=== PATIENT | male | born 1935 | race Caucasian/White ===

== ENCOUNTER 2017-03-03 07:13 | Day surgery (SDC) | payer MEDICARE, OTHER ==
[~2017-03-03] VITALS: Ht 170.2 cm; Wt 66.0 kg
[~2017-03-03 07:13] MED LIST: AMLO5TAB4 PO; ASPI-535 PO; CARV3.1260 PO; CHOL20002 PO; DONE10TA7 PO; ENOX30DI2 SC; INSU100C3 SC; LEVEM SC; LISI-325 PO; LISI-523 PO; METF1000 PO; OMEP40CA6 PO; ONDA4TAB35 PO; ROSU20TA PO; TAMS-14 PO
[2017-03-03] MEDS ORDERED: MIDAZOLAM 1 MG/ML 2 ML INJ ONE (07:40)
[2017-03-03] MEDS ORDERED: NITROGLYCERIN (IC) 100 MCG/ML INJ ONE (07:40)
[2017-03-03] MEDS ORDERED: LIDOCAINE 1% (MDV) 20 ML INJ ONE (07:40)
[2017-03-03] MEDS ORDERED: IODIXANOL LOCM 100 ML BTL ONE (07:40)
[2017-03-03] MEDS ORDERED: SOD CHLORIDE 0.9% 500 ML ONE (07:41)
[2017-03-03 07:53] VITALS: Ht 170.2 cm; Wt 66.0 kg
[2017-03-03] MEDS ORDERED: VERAPAMIL 5 MG INJ ONE (07:55)
[2017-03-03 07:58] LABS: ADD SCAN DIFF NO
[2017-03-03 08:25] LABS: BASOPHILS % 0.3 % (0.0-2.0); EOSINOPHILS # 0.2 10^3/ul (0.0-0.5); EOSINOPHILS % 2.6 % (0.0-7.0); HEMATOCRIT 39.3 % (42.0-52.0); HEMOGLOBIN 13.4 g/dl (14.0-18.0); LYMPHOCYTES % 34.1 % (15.0-51.0); MEAN CORPUSCULAR HGB CONC 34.1 g/dl (32.0-37.0); MEAN CORPUSCULAR VOLUME 87.9 fl (82.0-101.0); MEAN PLATELET VOLUME 10.7 fl (7.4-10.4); MONOCYTE # 0.6 10^3/ul (0.3-0.9); MONOCYTES % 10.1 % (0.0-11.0); NEUTROPHILS % 52.4 % (39.0-77.0); PLATELET COUNT 200 10^3/UL (140-415); RED BLOOD COUNT 4.47 10^6/ul (4.70-6.10); RED CELL DISTRIBUTION WIDTH 14.2 % (11.5-14.5); WHITE BLOOD COUNT 5.7 10^3/ul (4.8-10.8)
[2017-03-03 08:26] LABS: ALBUMIN 3.7 g/dl (3.3-4.9); ALBUMIN/GLOBULIN RATIO 0.94; BILIRUBIN,INDIRECT 0.2 mg/dl (0-1.1); BILIRUBIN,TOTAL 0.2 mg/dl (0.2-1.3); CALCIUM 9.2 mg/dl (8.4-10.2); CREATININE 0.85 mg/dl (0.61-1.24); POTASSIUM 4.3 mmol/L (3.5-5.1); TOTAL PROTEIN 7.6 g/dl (6.1-8.1)
[2017-03-03 08:29] LABS: INR 0.97; PARTIAL THROMBOPLASTIN TIME 26.8 Sec (25.0-35.0); PROTIME 12.9 Sec (12.2-14.2)
== END 2017-03-03 08:49 | disposition home or self-care (01) ==
LOC: SDS 07:13 → CCL 07:21 → SDS 08:49
PROVIDERS: ATTEND Internal Medicine Interventional Cardiology
DX: R07.9 Chest pain, unspecified (principal); Z53.9 Procedure and treatment not carried out, unspecified reason
CPT/HCPCS: 80053; 85025; 85610; 85730; J7040; Q9967; J2250

== ENCOUNTER 2017-03-07 11:17 | Day surgery (SDC) | payer MEDICARE, OTHER ==
[2017-03-07] VITALS (13 sets, daily range): BP systolic 157–179; BP diastolic 68–102; PULSE 54–74; RESP 10–18; Ht 165.1 cm; Wt 68.0 kg
[~2017-03-07] VITALS: Ht 165.1 cm; Wt 68.0 kg
[~2017-03-07 11:17] MED LIST changes: +SOD CHLORIDE 0.9% 1,000 ML IV SCH
[2017-03-07] MEDS ORDERED: AMLO-147 PO (12:13)
[2017-03-07] MEDS ORDERED: DOCU100T PO (12:17)
[2017-03-07] MEDS ORDERED: SPIR25TA PO (12:18)
[2017-03-07] MEDS ORDERED: APIX2.5T PO (12:18)
[2017-03-07] MEDS ORDERED: MONT10TA24 PO (12:20)
[2017-03-07] MEDS ORDERED: SOTA80TA PO (12:20)
[2017-03-07] MEDS ORDERED: NAPR-260 PO (12:22)
[2017-03-07] MEDS ORDERED: LANT3I SC (12:25)
[2017-03-07] MEDS ORDERED: NOVMIX SC (12:27)
[2017-03-07 13:10] LABS: ADD SCAN DIFF NO
[2017-03-07 13:11] LABS: BASOPHILS % 0.5 % (0.0-2.0); EOSINOPHILS # 0.1 10^3/ul (0.0-0.5); EOSINOPHILS % 2.2 % (0.0-7.0); HEMATOCRIT 36.3 % (42.0-52.0); HEMOGLOBIN 12.9 g/dl (14.0-18.0); LYMPHOCYTES # 1.7 10^3/ul (0.8-2.9); LYMPHOCYTES % 30.8 % (15.0-51.0); MEAN CORPUSCULAR HGB CONC 35.5 g/dl (32.0-37.0); MEAN CORPUSCULAR VOLUME 87.3 fl (82.0-101.0); MEAN PLATELET VOLUME 10.4 fl (7.4-10.4); MONOCYTE # 0.5 10^3/ul (0.3-0.9); MONOCYTES % 9.3 % (0.0-11.0); NEUTROPHIL # 3.1 10^3/ul (1.6-7.5); NEUTROPHILS % 56.7 % (39.0-77.0); PLATELET COUNT 184 10^3/UL (140-415); RED BLOOD COUNT 4.16 10^6/ul (4.70-6.10); RED CELL DISTRIBUTION WIDTH 13.9 % (11.5-14.5); WHITE BLOOD COUNT 5.5 10^3/ul (4.8-10.8)
[2017-03-07 13:27] LABS: INR 1.1; PROTIME 14.2 Sec (12.2-14.2); PT RATIO 1.1
[2017-03-07 13:28] LABS: PARTIAL THROMBOPLASTIN TIME 27.2 Sec (25.0-35.0)
[2017-03-07 13:31] LABS: ALANINE AMINOTRANSFERASE 30 IU/L (13-69); ALBUMIN 3.5 g/dl (3.3-4.9); ALBUMIN/GLOBULIN RATIO 0.94; ALKALINE PHOSPHATASE 58 IU/L (42-121); ANION GAP 8 (8-16); ASPARTATE AMINO TRANSFERASE 21 IU/L (15-46); BILIRUBIN,INDIRECT 0.4 mg/dl (0-1.1); BILIRUBIN,TOTAL 0.4 mg/dl (0.2-1.3); CARBON DIOXIDE 25 mmol/L (21-31); CHLORIDE 107 mmol/L (97-110); CHOL/HDL RATIO 7.4 RATIO; CHOLESTEROL 224 mg/dl (100-200); CREATINE KINASE 73 IU/L (23-200); GLUCOSE 193 mg/dl (70-220); HDL CHOLESTEROL 30 mg/dl (31-75); TOTAL PROTEIN 7.2 g/dl (6.1-8.1); TRIGLYCERIDES 235 mg/dl (0-149)
[2017-03-07] MEDS ORDERED: CLOPIDOGREL 75 MG TAB ONE (13:40)
[2017-03-07 13:41] LABS: BLOOD UREA NITROGEN 16 mg/dl (7-20); CALCIUM 8.9 mg/dl (8.4-10.2); CREATININE 0.84 mg/dl (0.61-1.24); POTASSIUM 3.9 mmol/L (3.5-5.1); SODIUM 136 mmol/L (135-144)
[2017-03-07] MEDS ORDERED: ASPIRIN 81 MG TAB ONE (13:41)
[2017-03-07 13:43] LABS: TROPONIN-I < 0.012 ng/ml (0.00-0.12)
[2017-03-07] MEDS ORDERED: MIDAZOLAM 1 MG/ML 2 ML INJ ONE (13:48)
[2017-03-07] MEDS ORDERED: IODIXANOL LOCM 100 ML BTL ONE (13:48)
[2017-03-07] MEDS ORDERED: FENTAnyl 50 MCG/ML VIAL ONE (13:48)
[2017-03-07] MEDS ORDERED: LIDOCAINE 1% (MDV) 20 ML INJ ONE (13:49)
[2017-03-07] MEDS ORDERED: SOD CHLORIDE 0.9% 1,000 ML IV SCH (14:24)
--- NOTE | 2017-03-07 18:59 | SP ---
DATE OF PROCEDURE: 03/07/2017 NAME OF PROCEDURE: 1. Left heart catheterization, selective left coronary angiograms ____ left femoral angiogram. 2. ____left femoral artery using a Perclose device. 3. Conscious sedation of more than 45 minutes. SURGEON: Dominick Moeller MD INDICATIONS: This 81-year-old gentleman was recommended to undergo diagnostic angiography because o f chest pain and markedly abnormal stress test showing a large amount of reversible ischemia in the LAD area. FINDINGS: 1. Left main coronary is a large vessel. It is normal. Left anterior descending artery proximally is large with about 60% to 70% proximal stenosis. After that, it appeared to be probably 100% occl uded and appears to be getting a very large diagonal. Diagonal itself is large and also 100% occlud ed. There is left to left collaterals with small right to left collaterals noted. 2. Ramus ____is a small to moderate sized vessel with about 50% stenosis. 3. Left circumflex artery is a small vessel with 20% mid stenosis. The right coronary is a large, dominant vessel. It has about 40% proximal ____stenosis, with another 40% stenosis at the posterola teral artery. 4. LVEDP is 23, aortic pressure with pullback is 182/68. DESCRIPTION OF PROCEDURE: A detailed informed consent was obtained. The risks and benefits were di scussed with the patient and family members in detail. ____ in supine position. In the right groin ____. Right groin area was anesthetized with 1% lidocaine, mobilizing a 6-Filipino right femoral art constance. Right femoral angiogram was performed. JL4 catheter was advanced and engaged the left main co ronary artery. Angiogram was obtained. JR4 catheter was advanced and engaged in the left main, hem odynamics recorded while pullback aortic pressure was measured. It was ____ in the right coronary a rtery and angiogram was obtained. Guidewire were removed. Perclose was successfully deployed. Pat ient tolerated the procedure without complication. Patient is transferred ____stable condition. IMMEDIATE COMPLICATIONS: None. 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 The patient's medications will be optimized. Discussed with the patient undergoing di fferent options including medical therapy, high risk ____ intervention versus bypass surgery as an o utpatient. Dictated By: DOMINICK TINSLEY/VALERIE Conf#: [id number] DID#: [id number]
== END 2017-03-07 19:00 | disposition home or self-care (01) ==
LOC: SDS 11:17
PROVIDERS: ATTEND Internal Medicine Interventional Cardiology
DX: I25.82 Chronic total occlusion of coronary artery (principal); E78.2 Mixed hyperlipidemia; I48.92 Unspecified atrial flutter; I48.0 Paroxysmal atrial fibrillation; I10 Essential (primary) hypertension; E11.9 Type 2 diabetes mellitus without complications
CPT/HCPCS: 80053; 80061; 82550; 82553; 82962; 84484; 85025; 85610; 85730; 93458; C1760; C1769; C1887; C1894; J1644; J2250; J3010; Q9967

== ENCOUNTER 2017-03-24 07:37 | Observation (INO) | payer MEDICARE, OTHER ==
[2017-03-24] VITALS (22 sets, daily range): BP systolic 135–164; BP diastolic 67–80; PULSE 65–83; RESP 16–22; Ht 157.5 cm; Wt 68.6 kg
[~2017-03-24] VITALS: Ht 157.5 cm; Wt 68.6 kg
[~2017-03-24 07:37] MED LIST changes: +AMLO-147 PO; -AMLO5TAB4 PO; +APIX2.5T PO; -CARV3.1260 PO; -CHOL20002 PO; +DOCU100T PO; -DONE10TA7 PO; -ENOX30DI2 SC; -INSU100C3 SC; +LANT3I SC; -LEVEM SC; -LISI-325 PO; -LISI-523 PO; -METF1000 PO; +MONT10TA24 PO; +NAPR-260 PO; +NOVMIX SC; -ONDA4TAB35 PO; -SOD CHLORIDE 0.9% 1,000 ML IV SCH; +SOTA80TA PO; +SPIR25TA PO
[2017-03-24] MEDS: SOD CHLORIDE 0.9% 1,000 ML IV SCH ×2 (09:00→23:30)
[2017-03-24 09:22] LABS: ADD SCAN DIFF NO
[2017-03-24 09:24] LABS: BASOPHILS % 0.4 % (0.0-2.0); EOSINOPHILS # 0.1 10^3/ul (0.0-0.5); EOSINOPHILS % 2.5 % (0.0-7.0); HEMATOCRIT 37.8 % (42.0-52.0); HEMOGLOBIN 13.3 g/dl (14.0-18.0); LYMPHOCYTES # 1.8 10^3/ul (0.8-2.9); LYMPHOCYTES % 32.1 % (15.0-51.0); MEAN CORPUSCULAR HEMOGLOBIN 30.9 pg (29.0-33.0); MEAN CORPUSCULAR HGB CONC 35.2 g/dl (32.0-37.0); MEAN CORPUSCULAR VOLUME 87.9 fl (82.0-101.0); MEAN PLATELET VOLUME 10.3 fl (7.4-10.4); MONOCYTE # 0.6 10^3/ul (0.3-0.9); MONOCYTES % 11.1 % (0.0-11.0); NEUTROPHILS % 53.7 % (39.0-77.0); PLATELET COUNT 213 10^3/UL (140-415); RED CELL DISTRIBUTION WIDTH 13.1 % (11.5-14.5); WHITE BLOOD COUNT 5.6 10^3/ul (4.8-10.8)
[2017-03-24 09:48] LABS: INR 1.07; PROTIME 13.9 Sec (12.2-14.2); PT RATIO 1.1
[2017-03-24 09:49] LABS: PARTIAL THROMBOPLASTIN TIME 27.5 Sec (25.0-35.0)
[2017-03-24 11:05] LABS: ALBUMIN 4.3 g/dl (3.3-4.9); ALBUMIN/GLOBULIN RATIO 1.38; BILIRUBIN,INDIRECT 0.4 mg/dl (0-1.1); BILIRUBIN,TOTAL 0.4 mg/dl (0.2-1.3); CALCIUM 9.5 mg/dl (8.4-10.2); CHOLESTEROL 204 mg/dl (100-200); CREATINE KINASE 101 IU/L (23-200); CREATININE 1.21 mg/dl (0.61-1.24); HDL CHOLESTEROL 29 mg/dl (31-75); POTASSIUM 4.5 mmol/L (3.5-5.1); TOTAL PROTEIN 7.4 g/dl (6.1-8.1); TRIGLYCERIDES 277 mg/dl (0-149)
[2017-03-24 11:17] LABS: CK-MB 2.17 ng/ml (0.0-2.4); TROPONIN-I < 0.012 ng/ml (0.00-0.12)
[2017-03-24] MEDS ORDERED: SOD CHLORIDE 0.9% 1,000 ML IV SCH (13:26)
[2017-03-24] MEDS ORDERED: OXYCODONE/ACETAMINOPHEN (5/325) TAB PO PRN (13:30)
[2017-03-24] MEDS ORDERED: ACETAMINOPHEN 325 MG TAB PO PRN (13:30)
[2017-03-24] MEDS ORDERED: GLUCAGON 1 MG INJ IM PRN (14:00)
[2017-03-24] MEDS ORDERED: DEXTROSE 50% 50 ML SYRINGE IV PRN ×2 (14:00)
[2017-03-24] MEDS ORDERED: GLUCOSE GEL 15 GRAM TUBE PO PRN ×2 (14:00)
[2017-03-24] MEDS ORDERED: GLUCOSE GEL 15 GRAM TUBE BUCCAL PRN (14:00)
[2017-03-24] MEDS: ACETYLCYSTEINE 600 MG CAP PO SCH ×2 (14:57→21:13)
--- NOTE | 2017-03-24 15:00 | SP ---
DATE OF PROCEDURE: 03/24/2017 NAME OF PROCEDURE: 1. Left heart catheterization, selective left coronary angiography. 2. Complicated but successful percutaneous transluminal coronary angioplasty stenting of the proximal, mid, and distal left anterior and descending artery from a chronic total occlusion mid left anterior descending to no significant residual stenosis, angioplasty of the diagonal branches. 3. moderate sedation for more than 150 minutes. SURGEON: Dominick Moeller MD CLINICAL INDICATIONS: The patient is a 81-year-old gentleman who was recommended to undergo diagnostic angiography for anginal chest pain and markedly abnormal stress test showing a large amount of reversible ischemia in the LAD area. The patient had angiography done and ____ medical therapy, he still continued to have anginal chest pain. Because of the large amount of ischemia in the LAD area ____ was recommended to undergo PCI of the SCD as well as LAD. FINDINGS: 1. Left main coronary artery is small, but appeared to be normal. 2. Left anterior descending artery proximally has about 70% stenosis. Mid level is 100% occlusion. After successful PTCA there was no significant stenosis left. Has multiple small diagonal branches. Angioplasty of diagonal was done. The first diagonal appeared to be jailed, the second and the third diagonal remained patent after angioplasty of the second diagonal. 3. Left circumflex artery with 50% stenosis. ____ has about 50% stenosis. 4. Right coronary angiography was not done. 4. Systolic pressure is 161, LVEDP of 11. DESCRIPTION OF PROCEDURE: Written informed consent was discussed with the patient and multiple family members in detail. The patient brought to the laboratory tech ____. Right groin was anesthetized with 1% lidocaine, modified Seldinger technique, a 5-Paraguayan sheath in the right femoral artery. Right femoral angiogram was performed. Preclose was done. A long 8-Paraguayan sheath was placed in the right femoral artery. A pigtail was advanced and engaged in the left main, hemodynamics recorded. Pullback aortic pressure was measured. Then XBLAD 3 guiding catheter was advanced and engaged in the left main coronary artery. Angiogram was obtained. Then, I used ____ including a PT200 and a Corsair catheter to try to advance across into the mid LAD, but even to the diagonal. I changed that wire over the Corsair to a BMW which was left in the diagonal. ____ finally a [employer] 50 wire was advanced and crossed into the distal LAD. A 2-0 balloon followed by 2.5 balloon was used and inflated in the area. Angiogram was obtained. Then, I used a 2.25 x 16 with a [place] [employer] Synergy drug-eluting stent was placed across the mid LAD and deployed it at 11 atmospheres. Angiogram was obtained. Then, I used another 2.5 x 32 mm Synergy drug-eluting stent ____ and more proximal to it, placed in the mid LAD again. Angiogram was obtained. It appeared that with the diagonal branch ____ jailed and completely occluded. I advanced the wire and was able to rewire this branch through with another BMW wire. J-wire was removed. At this point, it appeared the distal LAD ____ dissection was noted. A 2.0 balloon was used in this area which had a prolonged inflation. Angiogram was obtained. A 2.0 balloon was placed across the diagonal branch and inflated the area. Angiogram was obtained. Flow was restored again in this area. Angiogram was obtained. It appeared that the distal LAD was completely occluded , so I decided to convert the stent with another stent. Then, I used a 2.0 x 28 mm ____ stent in the distal LAD, covered it overlapping with a previous stent , covered the dissection area, and inflated it at 12 atmospheres. Then the balloon was withdrawn, and the overlapping area was postdilated again at 12 atmospheres. Angiogram was obtained. Then, I ballooned the diagonal branch with the same 2-0 and finally the LAD with a same stent balloon. Angiogram was obtained. Then, I used another wire, was able to advanced and able to cross into the first diagonal. This area appeared to have a 95% stenosis, was angioplastied no significant residual stenosis using a 2.0 balloon. Then, I used a 3.0 x 24 mm stent ____ across the proximal LAD into the mid overlapping distally with the previous stent. Deployed it at 14 and 16 atmospheres. Finally, a ____ noncompliant balloon was placed across ____ stent and postdilated the stent. Multiple angiograms were obtained which showed SHEILA 3 flow, no evidence of dissection, no significant residual stenosis at the site of stent. One of the diagonals was jailed but the rest were fine. The septal branches were also patent as well. Catheter and Glidewire were removed. Perclose was successfully deployed. The patient tolerated the procedure without complication. The patient was transferred to recovery in stable condition. TOTAL CONTRAST USED: 300 mL. TOTAL CONSCIOUS SEDATION TIME: More than 150 minutes. CONCLUSION: Successful PTCA stenting of the chronic total occlusion of the LAD. RECOMMENDATIONS: Aggressive medical therapy. Dictated By: DOMINICK TINSLEY/VALERIE Conf#: [id number] DID#: [id number] CC: JEAN-PAUL FERNANDEZ DO;*EndCC* MTDD
--- NOTE | 2017-03-24 15:29 | HP ---
DATE OF ADMISSION: 03/24/2017 CHIEF COMPLAINT: Coronary artery disease, status post PCI. HISTORY OF PRESENT ILLNESS: This is a 81-year-old male with a past medical history of hypertension, diabetes and dyslipidemia who presents to [facility] to undergo elective cardiac catheterization. The patient has a known history of coronary artery disease, had a positive stress test, and experiencing shortness of breath in the outpatient setting. As a result he came in to see Dr. Moeller, his doctor chiropractic, and is scheduled for outpatient cardiac catheterization with Dr. Coto at. Currently the patient is stable. Denies any active chest pain, fevers, chills, nausea, vomitin g or shortness of breath. PAST MEDICAL HISTORY: As stated above, a history of coronary artery disease, a history of diabetes, hypertension and dyslipidemia. PAST SURGICAL HISTORY: Status post cardiac catheterization. FAMILY HISTORY: Noncontributory. SOCIAL HISTORY: No alcohol or drug use. ALLERGIES: NO KNOWN DRUG ALLERGIES. MEDICATIONS: The patient's medications have been reviewed and reconciled. REVIEW OF SYSTEMS: A 14-point review of systems was conducted. Pertinent positives as stated in th e HPI, otherwise negative. PHYSICAL EXAMINATION: VITAL SIGNS: Blood pressure is 164/76, respirations 12, heart rate 72, temperature 98.6. HEENT: Head is normocephalic. Pupils are reactive to light. NECK: Supple. HEART: Regular rate. LUNGS: Show diminished breath sounds at the base. ABDOMEN: Soft, nontender to palpation. No rebound or guarding. EXTREMITIES: Negative for clubbing or cyanosis. No edema. DERMATOLOGIC: No rashes. MUSCULOSKELETAL: Have no joint effusion. NEUROLOGIC: No focal deficits. The patient's medications have been reviewed. LABORATORY DATA: Shows white count 5.6, hemoglobin 13.2, hematocrit 37.8, and platelet count is 213 . Sodium 140, potassium 4.5, chloride 105, BUN 29, creatinine 1.21. Triglycerides 277, cholestero l 204, and HDL 229. ASSESSMENT AND PLAN: 1. Coronary artery disease. The patient is pending cardiac catheterization with Dr. Moeller. Williams wing the procedure the patient will be transferred to the intensive care unit for observation. Will anticipate to continue the current medical management with aspirin, Plavix, and Lipitor. Will nikhil ow up with Dr. Moeller for further recommendations. 2. History of arrhythmia and atrial fibrillation. The patient is currently in sinus rhythm. Perez nue medical management with sotalol and Eliquis. 3. Dyslipidemia. Continue statin therapy. 4. Hypertension. Blood pressure is currently elevated. Will continue the current blood pressure m edications and adjust as needed. 5. Diabetes. Will continue the current insulin regimen. Continue Accu-Cheks and insulin sliding sc jaime. Will hold metformin. 6. Gastrointestinal and deep venous thrombosis prophylaxis. Continue proton pump inhibitor and Tatyana jessi. 7. Anemia, mild. Monitor H and H levels. 8. Mild renal insufficiency. Continue IV hydration. Monitor for any signs of contrast-associated nephropathy. Dictated By: JEAN-PAUL LUCERO/VALERIE Conf#: [id number] DID#: [id number]
[2017-03-24] MEDS: INSULIN ASPART [NOVOLOG] 3 ML PEN SC SCH ×2 (17:35→21:24)
[2017-03-24] MEDS ORDERED: ONDANSETRON 4 MG INJ IV PRN (19:30)
[2017-03-24] MEDS ORDERED: DOCUSATE SODIUM 100 MG CAP PO SCH (21:00)
[2017-03-24] MEDS ORDERED: TAMSULOSIN (SR) 0.4 MG CAP PO SCH (21:00)
[2017-03-24] MEDS ORDERED: MONTELUKAST 10 MG TAB PO SCH (21:00)
[2017-03-24] MEDS ORDERED: ATORVASTATIN 80 MG TAB PO SCH (21:00)
[2017-03-24] MEDS: SOTALOL 80 MG TAB PO SCH (21:14)
[2017-03-25] VITALS (21 sets, daily range): BP systolic 120–145; BP diastolic 61–79; PULSE 63–78; RESP 12–24
[2017-03-25 05:44] LABS: ADD SCAN DIFF NO
[2017-03-25 05:50] LABS: BASOPHILS % 0.4 % (0.0-2.0); EOSINOPHILS # 0.1 10^3/ul (0.0-0.5); EOSINOPHILS % 1.3 % (0.0-7.0); HEMATOCRIT 35.7 % (42.0-52.0); HEMOGLOBIN 12.1 g/dl (14.0-18.0); LYMPHOCYTES # 1.4 10^3/ul (0.8-2.9); LYMPHOCYTES % 18.8 % (15.0-51.0); MEAN CORPUSCULAR HGB CONC 33.9 g/dl (32.0-37.0); MEAN CORPUSCULAR VOLUME 88.4 fl (82.0-101.0); MEAN PLATELET VOLUME 10.6 fl (7.4-10.4); MONOCYTE # 0.7 10^3/ul (0.3-0.9); MONOCYTES % 9.2 % (0.0-11.0); PLATELET COUNT 200 10^3/UL (140-415); RED BLOOD COUNT 4.04 10^6/ul (4.70-6.10); RED CELL DISTRIBUTION WIDTH 13.2 % (11.5-14.5); WHITE BLOOD COUNT 7.2 10^3/ul (4.8-10.8)
[2017-03-25 06:27] LABS: ALBUMIN 3.6 g/dl (3.3-4.9); ALBUMIN/GLOBULIN RATIO 1.2; BILIRUBIN,INDIRECT 0.5 mg/dl (0-1.1); BILIRUBIN,TOTAL 0.5 mg/dl (0.2-1.3); CALCIUM 8.6 mg/dl (8.4-10.2); CREATININE 1.06 mg/dl (0.61-1.24); MAGNESIUM 1.8 mg/dl (1.7-2.5); POTASSIUM 4.9 mmol/L (3.5-5.1); TOTAL PROTEIN 6.6 g/dl (6.1-8.1)
[2017-03-25] MEDS ORDERED: SOD CHLORIDE 0.9% 1,000 ML IV SCH (08:30)
[2017-03-25] MEDS: INSULIN ASPART [NOVOLOG] 3 ML PEN SC SCH (08:45)
[2017-03-25] MEDS ORDERED: SPIRONOLACTONE 25 MG TAB PO SCH (09:00)
[2017-03-25] MEDS ORDERED: AMLODIPINE 10 MG TAB PO SCH (09:00)
[2017-03-25] MEDS ORDERED: ASPIRIN (EC) 81 MG TAB PO SCH (09:00)
[2017-03-25] MEDS ORDERED: CLOPIDOGREL 75 MG TAB PO SCH (09:00)
[2017-03-25] MEDS: ACETYLCYSTEINE 600 MG CAP PO SCH (09:11)
[2017-03-25] MEDS: SOTALOL 80 MG TAB PO SCH (09:12)
--- NOTE | 2017-03-25 11:17 | PN ---
DATE: 03/25/2017 CARDIOLOGY FOLLOWUP SUBJECTIVE: The patient has no chest pain or pressure. No palpitations. Wants to go home. No urban in pain. MEDICATIONS: Reviewed. PHYSICAL EXAMINATION: VITAL SIGNS: Temperature 96, heart rate of 64, blood pressure 120/68, respiratory rate 20, saturati ng 97%. HEENT: Normocephalic, atraumatic. No acute distress. Pupils are equal. CARDIOVASCULAR: Regular rate and rhythm. PULMONARY: With no wheezes, no rhonchi. GASTROINTESTINAL: Soft, nontender. EXTREMITIES: No significant edema. NEUROLOGIC: Awake and alert. PSYCHIATRIC: Appeared to be calm. LABORATORY: WBC of 7.7, hemoglobin 12.1, platelets 200. Sodium 137, potassium 4.9, BUN of 23, crea tinine 1.06, glucose 174. AST of 149, ALT of 47. ASSESSMENT AND PLAN: 1. Severe angina. 2. Severe ischemia on the stress test. 3. Status post successful percutaneous coronary intervention of chronic total occlusion of th e left anterior descending and angioplasty of the diagonal. 4. Paroxysmal atrial fibrillation, currently in sinus rhythm. 5. Hypertension. RECOMMENDATIONS: We will continue with the current cardiac care including aspirin and Plavix. Beta mitzi sotalol will be continued. will be continued. The patient is to follow up with me a s an outpatient. Dictated By: DOMINICK TINSLEY/VALERIE Conf#: [id number] LEEANNA#: [id number] CC: JEAN-PAUL FERNANDEZ DO;*EndCC*
--- NOTE | 2017-03-25 16:57 | RADRPT ---
Vent Rate: 65 bpm RR Interval: 0 msec PA Interval: 198 msec QRS Duration: 94 msec QT Interval: 424 msec QTC Interval: 440 msec P-R-T [place]: 24 - 23 - -25 degrees Normal sinus rhythm ST elevation, consider anterolateral injury or acute infarct ACUTE SC Abnormal ECG No previous tracing available for comparison Electronically Signed By: Mauri Toribio [id number]
--- NOTE | 2017-03-25 19:26 | DS ---
DATE OF ADMISSION: 03/24/2017 DATE OF DISCHARGE: 03/25/2017 HOSPITAL COURSE: This is a 81-year-old male with a past medical history of hypertension, diabetes, dyslipidemia, who presented to [facility] to undergo elective cardiac catheterizat ion. The patient was noted to have a positive stress test and experienced shortness of breath in an outpatient setting. The patient as a result came to [facility] and underwent arnaud ctive cardiac catheterization by Dr. Moeller. The patient's cardiac catheterization showed coronary artery disease, and the patient had successful PCI and stenting of the proximal, mid, and distal lef t anterior and descending arteries. Following the procedure, the patient was admitted to ICU for ob servation overnight. The patient clinically was stable, had no episodes of chest pain, shortness of breath, nausea, vomiting. The patient also was noted to have normal electrolytes, had no evidence of renal insufficiency following the procedure. Currently, at this time, the patient is stable, and he will be discharged home where he will follow up with Dr. Moeller in 1-2 weeks' time. At the time of discharge, the patient is stable, in no acute distress. FINAL DIAGNOSES: 1. Coronary artery disease status post percutaneous coronary intervention to the proximal, mid, and distal left anterior and descending arteries. 2. History of paroxysmal atrial fibrillation, currently in sinus rhythm. 3. Dyslipidemia. 4. Hypertension. 5. Diabetes. 6. Anemia. 7. Mild renal insufficiency, resolved. FINAL MEDICATIONS: The patient will be discharged on his home regimen of amlodipine, aspirin, insul in, sotalol, Aldactone, Flomax, Crestor. CONDITION ON DISCHARGE: At the time of discharge, the patient is stable, in no acute distress. Please note I spent over 40 minutes preparing the patient's discharge. Dictated By: JEAN-PAUL LUCERO/VALERIE Conf#: [id number] DID#: [id number]
== END 2017-03-25 14:10 | disposition home or self-care (01) ==
LOC: SDS 07:37 → ICU 13:35
PROVIDERS: ADMIT Internal Medicine Interventional Cardiology; ATTEND Internal Medicine Interventional Cardiology
DX: I25.10 Atherosclerotic heart disease of native coronary artery without angina pectoris (principal); E11.9 Type 2 diabetes mellitus without complications; I10 Essential (primary) hypertension; E78.5 Hyperlipidemia, unspecified; I48.0 Paroxysmal atrial fibrillation; D64.9 Anemia, unspecified; N28.9 Disorder of kidney and ureter, unspecified
CPT/HCPCS: 80053; 80061; 82550; 82553; 82962; 83735; 83880; 84484; 85025; 85610; 85730; 93005; 93458; 96361; 96372; 96374; C1725; C1760; C1769; C1874; C1887; C9607; G0378; J1815; J2405; J7030

== ENCOUNTER 2017-12-20 06:49 | Emergency (ER) | END 2017-12-20 12:23 | disposition home or self-care (01) ==